=== PATIENT | female | born 1935 | race Caucasian/White ===

== ENCOUNTER 2017-02-05 08:16 | Day surgery (SDC) | payer MEDICARE, OTHER ==
[~2017-02-05] VITALS: Ht 160 cm; Wt 90.5 kg
[~2017-02-05 08:16] MED LIST: ASP81TEC PO; ATEN25TA7 PO; ATEN50TA7 PO; CHOL200025 PO; COZ25 PO; FURO20TA PO; Furosemide 10 mg/mL 2 mL Inj IV ONE; OSC500 PO; PANT20T PO; diphenhydrAMINE 25 mg Capsule PO ONE
[2017-02-05] MEDS ORDERED: 0.9% Sodium Chloride 250 ML ONE ×2 (09:35→13:00)
[2017-02-05 09:55] VITALS: BP 133/69; PULSE 72; RESP 16
[2017-02-05 10:09] VITALS: BP 136/63; PULSE 75; RESP 12
[2017-02-05] MEDS ORDERED: OXYB30GE TD (11:30)
[2017-02-05] MEDS ORDERED: CYCL5.5D OP (11:30)
[2017-02-05] MEDS ORDERED: LOSA50TA37 PO (11:30)
[2017-02-05] MEDS ORDERED: KEN1C EXT (11:30)
[2017-02-05] MEDS ORDERED: HYDR-656 PO (11:30)
[2017-02-05 12:56] VITALS: BP 129/67; PULSE 67; RESP 12
[2017-02-05] MEDS ORDERED: Furosemide 10 mg/mL 2 mL Inj ONE (12:58)
[2017-02-05 13:55] VITALS: BP 149/71; PULSE 68; RESP 12
[2017-02-05 14:05] VITALS: BP 123/67; PULSE 67; RESP 12
[2017-02-05 16:20] VITALS: BP 140/70; PULSE 67; RESP 16
--- NOTE | 2017-02-05 18:11 | NUR ---
Two units PRBCs Patient arrived ambulatory to [facility] [place] room 241-1. She had received a blood transfusion a while before. Provided patient education notes and teaching on blood transfusion. Stated understanding. Premedicated with ordered Benadryl 25 mg and Tylenol 650 mg. Also gave Tylenol after 4 hours as orders. Administered ordered IV Lasix 20 mg after first unit of blood. Patient up to bathroom independently multiple times during stay. Tolerated ordered 2 units of PRBCs without incident. Discharged home in stable condition accompanied by family member. Stated understanding of discharge instructions. Ordered post transfusion H&H lab drawn. Copy of results faxed to Cha Cabral PA-C.
== END 2017-02-05 23:59 | disposition home or self-care (01) ==
LOC: MOCO 08:16
PROVIDERS: ATTEND Physician Assistant
DX: D50.0 Iron deficiency anemia secondary to blood loss (chronic) (principal); Z79.82 Long term (current) use of aspirin; K21.9 Gastro-esophageal reflux disease without esophagitis; I10 Essential (primary) hypertension
CPT/HCPCS: 36415; 36430; 85014; 85018; 86922; 96374; J1940; J7050; P9021